=== PATIENT | female | born 1950 | race Caucasian/White ===

== ENCOUNTER 2020-07-17 07:39 | Outpatient (CLI) | payer MEDICARE, OTHER ==
[2020-07-17 14:32] LABS: Hemoglobin 14.3 g/dL (12.0-16.0); Mean Corpuscular HGB CONC 33.7 g/dL (32.0-36.0); Mean Corpuscular Hemoglobin 32.9 pg (27.0-31.0); Mean Corpuscular Volume 97.6 fL (78.0-98.0); Mean Platelet Volume 7.9 fL (7.4-10.4); Platelet Count 283 thou/uL (130-400); Red Blood Cell (RBC) Count 4.35 mill/uL (4.20-5.40); White Blood Cell (WBC) Count 7.1 thou/uL (4.8-10.8)
[2020-07-18 12:51] LABS: SARS-CoV-2 MS2 Positive; SARS-CoV-2 N Gene Negative; SARS-CoV-2 S Gene Negative; SARS-CoV-2 by NAA Not Detected (NotDetected); SARS-CoV-2 orf1ab Negative
== END 2020-07-17 07:40 | disposition home or self-care (01) ==
LOC: LABBT 07:39
PROVIDERS: ATTEND Neurological Surgery
DX: Z01.818 Encounter for other preprocedural examination (principal); Z20.828 Contact with and (suspected) exposure to other viral communicable diseases; M51.26 Other intervertebral disc displacement, lumbar region; M48.061 Spinal stenosis, lumbar region without neurogenic claudication
CPT/HCPCS: 85027; 93005; U0003; 87635; 93010

== ENCOUNTER 2020-07-20 05:34 | Day surgery (SDC) | payer MEDICARE ==
[2020-07-18 11:16] VITALS: BMI 30.4
--- NOTE | 2020-07-18 21:20 | HP ---
CHIEF COMPLAINT: Back and right leg pain. HISTORY OF PRESENT ILLNESS: Ms. Iglesias is a 70-year-old female with eight months of lower back and right leg pain. Pain radiates into her right gluteal muscle, posterior thigh, lateral calf, anterior of her foot. The pain has become unbearable and sitting is only making her pain worse. When standing or walking, she has to lean forward into the left. She denies bladder or bowel dysfunction. REVIEW OF SYSTEMS: CONSTITUTIONAL: Denies fever or chills. ENT: Denies change in vision or hearing. CARDIAC: Denies chest pain, shortness of breath, or diaphoresis. PULMONARY: Denies shortness of breath, cough, or hemoptysis. GI: Denies abdominal pain, nausea, vomiting, diarrhea, change in stool formation and consistency. : Denies trouble with urination, frequency of urination, or bloody urine. SKIN: Denies skin rash, bruising, bleeding, or skin masses. MUSCULOSKELETAL: As per history of present illness. NEUROLOGICAL: As per history of present illness. PSYCHOLOGICAL: Denies anxiety, depression, or behavior changes. PAST MEDICAL HISTORY: Hyperlipidemia, sleep apnea, restless legs syndrome, allergic rhinitis. PAST SURGICAL HISTORY: Hysterectomy, bladder, left bunion. FAMILY HISTORY: Father . Mother . CAD, dementia, glaucoma, heart disease. One son, two daughters. SOCIAL HISTORY: Smokes half a pack per day for 53 years. Occasionally drinks alcohol. Denies illicit drugs. ALLERGIES: NO KNOWN DRUG ALLERGIES. HOSPITALIZATIONS: Left pupil swelling, 08/02/2017. CURRENT MEDICATIONS: 1. Fluticasone 50 mg. 2. Zyrtec 10 mg. 3. Mirapex 0.25 mg. 4. Atorvastatin 20 mg. 5. Tramadol 50 mg. 6. Gabapentin 100 mg. 7. Hydrocodone acetaminophen 10/325 mg. PHYSICAL EXAMINATION: VITAL SIGNS: Weight 200, height 65.5, BMI 32.77. HEENT: Pupils are equal. Extraocular movements are intact. NECK: Soft, supple. No masses are noted. Range of motion is intact and nonpainful. NEUROLOGICAL: Awake, alert, and oriented x3. Memory, attention, fund of knowledge normal. Cranial nerves grossly intact. Gait and station are normal. Toe, heel, and tandem walking are performed smoothly without weakness or apraxia. Motor exam is normal. Strength in the iliopsoas, quadriceps, hamstrings, anterior tib, EHL, gastroc, and toe flexors. Sensory exam: There is no dermatomal sensory loss. Lower extremity: Positive SLR with severe L5 pain into the foot. IMAGING: MRI of the lumbar spine. Lateral recess stenosis at L4-L5 bilateral and L5-S1 left. Right L4-L5 small herniated lumbar disk under the L5 root. X-ray; flexion-extension is stable. 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 PLAN: 1. Laminectomy L4-L5 and right L4-L5 microdiskectomy. 2. Preop labs, CBC, PT, PTT, COVID-19. 3. Anesthesia clearance. 4. The patient should stop smoking four weeks prior to surgery. INFORMED CONSENT: We discussed the indications, risks, benefits, alternatives, and expected results from surgery. The risks discussed included, but were not limited to, bleeding, infection, CSF leak, nerve damage, weakness, incontinence, cauda equina injury, arachnoiditis, paralysis, ventilator dependency, wheelchair dependency, loss of vision, cardiopulmonary complications of anesthesia, or . Long-term complications discussed included, but were not limited to spinal instability and future surgery. She understands the risks and is willing to proceed. Job ID: [id number]
[2020-07-20] MEDS ORDERED: Bupivacaine PF 0.5% 30 ML VIAL ONE (06:12)
[2020-07-20] MEDS ORDERED: EPINEPHrine 1 MG/ML AMP ONE (06:12)
[2020-07-20] MEDS ORDERED: Thrombin 5000 UNITS/5 ML VIAL ONE (06:12)
[2020-07-20] MEDS ORDERED: Lidocaine 2% Jelly 5 ML TUBE ONE (06:19)
[2020-07-20] MEDS ORDERED: HYDROmorphone 0.5 MG/0.5 ML SYRINGE ONE ×2 (06:19→09:31)
[2020-07-20] MEDS ORDERED: Fentanyl 100 MCG/2 ML VIAL ONE ×3 (06:19→09:15)
[2020-07-20] MEDS ORDERED: Albuterol Sulfate HFA (OR ONLY) ONE ×2 (07:08→09:31)
[2020-07-20] MEDS ORDERED: Ondansetron PF 4 MG/2 ML Vial ONE (09:31)
[2020-07-20] MEDS ORDERED: Lidocaine 1% PF 5 ML VIAL ONE (09:31)
[2020-07-20] MEDS ORDERED: Glycopyrrolate 0.2 MG/ML 5 ML SYRINGE ONE (09:31)
[2020-07-20] MEDS ORDERED: EPHEDRINE 25 MG/5 ML SYRINGE ONE (09:31)
[2020-07-20] MEDS ORDERED: Rocuronium Bromide 10 MG/ML (10ML VIAL) ONE (09:31)
[2020-07-20] MEDS ORDERED: PHENYLEPHRINE-NS 100 MCG/ML 10 ML SYRINGE ONE (09:31)
[2020-07-20] MEDS ORDERED: Dexamethasone 20 MG/5 ML VIAL ONE (09:31)
[2020-07-20] MEDS ORDERED: PROPOFOL 200 MG/20 ML VIAL ONE (09:31)
[2020-07-20] MEDS ORDERED: Acetaminophen/Codeine 30-300mg Tablet ONE (12:32)
--- NOTE | 2020-07-20 12:37 | OP ---
DATE OF PROCEDURE: 07/20/2020 EGG SEPARATOR: David Tate PA-C PREOPERATIVE INDICATION: Treat pain and prevent neurological deterioration. PREOPERATIVE DIAGNOSIS: L4-L5 lateral recess stenosis and right L4-L5 intervertebral disk herniation with right L5 radiculopathy. POSTOPERATIVE DIAGNOSIS: L4-L5 lateral recess stenosis and right L4-L5 intervertebral disk herniation with right L5 radiculopathy. PROCEDURES PERFORMED: Decompressive laminectomy with medial facetectomy, foraminotomy, bilateral L4-L5 and a right-sided L4-L5 microdiskectomy. PREOPERATIVE MEDICATIONS: Ancef 2 g IV. DRAIN NUMBER: Zero. DRAIN TYPE: None. DESCRIPTION OF PROCEDURE: The patient was brought to the operating room. General endotracheal anesthesia was induced. The patient was carefully positioned on the operating table with the chest and hips supported by gel-filled chest rolls. A lateral fluoro radiograph was used to plan our incision. The lumbar skin was sterilely prepped and draped. We opened with a 10 blade knife. We controlled bleeding with bipolar and monopolar cautery. We used monopolar cautery to dissect through subcutaneous tissues to the thoracodorsal fascia. We incised the fascia in the midline and reflected paraspinal muscles off the spinous process and lamina of L4 and L5. A self-retaining retractor was placed, and a lateral fluoro radiograph confirmed the levels upon which we were operating. We then used an Adson rongeur to remove the spinous process of L4 and the top of L5. We used Kerrison rongeurs to fashion a laminectomy. We had to perform medial facetectomies on both sides to decompress the lateral recesses over the L5 nerve roots. We performed foraminotomies of the nerve roots as well. We then turned our attention to the disk on the right side. The operating microscope was brought into the field. Under microscopic magnification and using microsurgical techniques, we gently retracted the thecal sac medially. We identified an intervertebral disk herniation medial to the pedicle at L5 and under the L5 nerve root. We incised the disk and multiple fragments were removed. Some of it emanated under pressure. The disk completely removed, we probed for the annulus and found a small hole. There was no loose fragments of disk to remove. We then irrigated with bacitracin irrigation. We ensured the right L5 nerve root was no longer stretched. We infused local anesthetic in the paraspinal muscles. We treated the wound with vancomycin powder. We closed the wound in anatomical layers. We applied a sterile dressing. This was a clean case, no contamination. Job ID: [id number]
== END 2020-07-20 13:45 | disposition home or self-care (01) ==
LOC: SDC 05:34
PROVIDERS: ATTEND Neurological Surgery
PROC: 0ST20ZZ Resection of Lumbar Vertebral Disc, Open Approach (ICD-10-PCS; principal; 2020-07-20)
PROC: 01NB0ZZ Release Lumbar Nerve, Open Approach (ICD-10-PCS; 2020-07-20)
DX: M51.16 Intervertebral disc disorders with radiculopathy, lumbar region (principal); M48.061 Spinal stenosis, lumbar region without neurogenic claudication; E78.5 Hyperlipidemia, unspecified; G47.30 Sleep apnea, unspecified; G25.81 Restless legs syndrome; J30.9 Allergic rhinitis, unspecified; F17.210 Nicotine dependence, cigarettes, uncomplicated; Z79.899 Other long term (current) drug therapy
CPT/HCPCS: 76000; J0171; J0690; J1170; J3010; J3370; J3490; S0020

== ENCOUNTER 2023-08-20 09:04 | Outpatient (CLI) | payer MEDICARE | END 2023-08-20 09:05 | disposition home or self-care (01) | LOC: BICULT 09:04 | PROVIDERS: ATTEND Family Medicine | DX: R60.0 Localized edema (principal) | CPT/HCPCS: 93970 ==